=== PATIENT | female | born 1965 | race African-American/Black ===

== ENCOUNTER 2016-04-17 20:29 | Emergency (ER) | payer OTHER ==
[2016-04-17] MEDS ORDERED: ACETAMINOPHEN 325 MG TABLET PO ONE (20:37)
--- NOTE | 2016-04-17 20:38 | ER Document Report ---
ED Medical Screen (RME) - General Stated Complaint: COXIS PAIN Mode of Arrival: Ambulatory Information source: Patient Notes: Patient complains of heavy vaginal pressure after a lot of heavy lifting and moving at work. Patient denies any urinary symptoms. Patient denies vaginal bleeding or discharge hx: Hypertension I have greeted and performed a rapid initial assessment of this patient. A comprehensive ED assessment and evaluation of the patient, analysis of test results and completion of the medical decision making process will be conducted by additional ED providers. Physical Exam - Vital signs Vitals: Temp Pulse Resp BP Pulse Ox 97.9 F 65 16 178/98 H 97 04/17/16 20:34 04/17/16 20:34 04/17/16 20:34 04/17/16 20:34 04/17/16 20:34 - General General appearance: Appears well, Alert In distress: None Course - Vital Signs Vital signs: Temp Pulse Resp BP Pulse Ox 97.9 F 65 16 178/98 H 97 04/17/16 20:34 04/17/16 20:34 04/17/16 20:34 04/17/16 20:34 04/17/16 20:34
--- NOTE | 2016-04-17 21:35 | ER Document Report ---
ED General - General Chief Complaint: Pelvic Pain Stated Complaint: COXIS PAIN Mode of Arrival: Ambulatory Information source: Patient Notes: Patient presents to the emergency department with complaints of vaginal pressure. 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 She reports she is constantly lifting and pulling residence that live there. She reports she doesn 't remember feeling a pop or pain when she was lifting a patient but when she went to sit down she started having vaginal pressure. She denies other symptoms such as fever vomiting diarrhea. She denies pain with void. Denies urinary frequency She reports she has not been sexually active. Denies past medical history of injury to that area. TRAVEL OUTSIDE OF THE [place] IN LAST 30 DAYS: No - HPI Onset: Just prior to arrival Onset/Duration: Sudden Quality of pain: Pressure Severity: Severe Pain Level: 5 Associated symptoms: None Exacerbated by: Denies Relieved by: Denies Similar symptoms previously: No Recently seen / treated by doctor: No - Related Data Allergies/Adverse Reactions: acetaminophen [From Percocet] Allergy (Verified 04/17/16 21:59) diphenhydramine [From Benadryl] Allergy (Verified 04/17/16 21:59) oxycodone [From Percocet] Allergy (Verified 04/17/16 21:59) Home Medications: Current Home Medications Amlodipine Besylate [Norvasc 10 mg Tablet] 1 tab PO DAILY 04/17/16 [History] Lisinopril 1 tab PO DAILY 04/17/16 [History] Past Medical History - General Information source: Patient Last Menstrual Period: last month - Social History Smoking Status: Never Smoker Cigarette use (# per day): No Chew tobacco use (# tins/day): No Frequency of alcohol use: None Drug Abuse: None Occupation: [employer] Family History: None Patient has suicidal ideation: No Patient has homicidal ideation: No Renal/ Medical History: Denies: Hx Peritoneal Dialysis Traumatic Medical History: Reports: Hx Fractures Past Surgical History: Reports: Hx Section Review of Systems - Review of Systems Notes: Review HPI for review of systems., All other systems negative Physical Exam - Vital signs Vitals: Temp Pulse Resp BP Pulse Ox 97.9 F 65 16 178/98 H 97 04/17/16 20:34 04/17/16 20:34 04/17/16 20:34 04/17/16 20:34 04/17/16 20:34 - Notes Notes: PHYSICAL EXAMINATION: GENERAL: Well-appearing and in no acute distress nontoxic looking HEAD: Atraumatic, normocephalic. EYES: Pupils equal round extraocular movements intact, sclera anicteric, conjunctiva are normal. ENT: nares patent, Moist mucous membranes. NECK: Normal range of motion, supple without lymphadenopathy LUNGS: CTAB and equal. No wheezes rales or rhonchi. HEART: Regular rate and rhythm without murmurs ABDOMEN: Soft, no tenderness. No guarding, no rebound BACK: No c/o pain EXTREMITIES: Normal range of motion, no pitting edema. No cyanosis. NEUROLOGICAL: Cranial nerves grossly intact. Normal sensory/motor PSYCH: Normal mood, normal affect. SKIN: Warm, Dry, normal turgor, no rashes or lesions noted - Genitourinary External exam: Normal Speculum exam: Normal Vaginal bleeding: None Bimanuel exam: Normal Course - Re-evaluation Re-evalutation: 04/17/16 21:34 Patient instructed on pending pelvic. 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 Patient also instructed on signs and symptoms of allergic reaction to sulfa. - Vital Signs Vital signs: Temp Pulse Resp BP Pulse Ox 97.9 F 65 16 178/98 H 97 04/17/16 20:34 04/17/16 20:34 04/17/16 20:34 04/17/16 20:34 04/17/16 20:34 - Laboratory Laboratory results interpreted by me: 04/17/16 21:45 Ur Leukocyte Esterase MODERATE H Procedures - Pelvic Exam Pelvic exam Cultures obtained: No Wet prep obtained: No Herpes culture obtained: No POC sent to lab: No Foreign body removed: No Bimanual exam performed: Yes Witnessed by: jack brady lpn Discharge - Discharge Clinical Impression: vaginal pressure UTI (urinary tract infection) Qualifiers: Urinary tract infection type: site unspecified Hematuria presence: without hematuria Qualified Code(s): N39.0 - Urinary tract infection, site not specified Condition: Stable Disposition: HOME, SELF-CARE Instructions: Urinary Tract Infection ([facility]), Trimethoprim-Sulfa ([facility]) Additional Instructions: *You have been evaluated for vaginal pressure, urinary tract infection *Take medication as prescribed *Follow up with your [facility] or the health department for recheck *Avoid sexual intercourse until follow up *Plan urine recheck in one week *Return to ED for worsening condition, changes, needs Prescriptions: Sulfamethoxazole/Trimethoprim [Bactrim Ds Tablet] 1 each PO BID #10 tablet Forms: Return to Work
[2016-04-17 22:17] LABS: APPEARANCE,URINE CLEAR; BILIRUBIN,URINE NEGATIVE (NEGATIVE); GLUCOSE, URINE NEGATIVE (NEGATIVE); KETONES,URINE NEGATIVE (NEGATIVE); LEUKOCYTE ESTERASE,URINE MODERATE (NEGATIVE); NITRITE,URINE NEGATIVE (NEGATIVE); PROTEIN,URINE NEGATIVE (NEGATIVE); URINE SPECIFIC GRAVITY 1.017; UROBILINOGEN,URINE NEGATIVE mg/dL (<2.0)
[2016-04-17 23:44] VITALS: BP 135/79
== END 2016-04-17 22:55 | disposition home or self-care (01) ==
LOC: ER 20:29
DX: N39.0 Urinary tract infection, site not specified (principal); R10.2 Pelvic and perineal pain; Z88.6 Allergy status to analgesic agent
CPT/HCPCS: 81001; 81025; 87086; 87088; 99284

== ENCOUNTER 2017-01-22 23:40 | Emergency (ER) | payer OTHER ==
[2017-01-22 23:56] VITALS: BP 167/92
[2017-01-23] MEDS ORDERED: IBUPROFEN 800 MG TABLET PO ONE (00:08)
--- NOTE | 2017-01-23 00:08 | ER Document Report ---
HPI - HPI Patient complains to provider of: Right shoulder pain Pain Level: 3 Context: Patient is a 51-year-old female presents emergency department complaining of right shoulder pain. Patient states that she has previous history of pain in the shoulder and was diagnosed with a possible torn rotator cuff but denies any previous imaging of the shoulder. 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 She states she has this pain with arm abduction but otherwise has been trying to move around. She has not taken anything [id number] for her pain she denies any associated chest pain, shortness of breath with us - DERM Skin Color: Normal Past Medical History - Social History Smoking Status: Never Smoker Family History: None Patient has suicidal ideation: No Patient has homicidal ideation: No - Past Medical History Cardiac Medical History: Reports: Hx Hypertension Renal/ Medical History: Denies: Hx Peritoneal Dialysis Traumatic Medical History: Reports: Hx Fractures Past Surgical History: Reports: Hx Section - Immunizations Hx Diphtheria, Pertussis, Tetanus Vaccination: Yes Vertical Provider Document - CONSTITUTIONAL Agree With Documented VS: Yes General Appearance: WD/WN, No Apparent Distress - INFECTION CONTROL TRAVEL OUTSIDE OF THE [place] IN LAST 30 DAYS: No - RESPIRATORY Respiratory: Breath Sounds Normal, No Respiratory Distress, Chest Non-Tender O2 Sat by Pulse Oximetry: 98 - CARDIOVASCULAR Cardiovascular: Regular Rate, Regular Rhythm, No Murmur Pulses: Normal: Radial Notes: Chest nontender to palpation - MUSCULOSKELETAL/EXTREMETIES Musculoskeletal/Extremeties: MAEW, FROM, Tender - AC joint right shoulder, No Edema. negative: Edema, Eccymosis Notes: No deformity or dislocation - NEURO Level of Consciousness: Awake, Alert, Appropriate Motor/Sensory: No Motor Deficit, No Sensory Deficit - DERM Integumentary: Warm, Dry, No Rash Course - Re-evaluation Re-evalutation: 01/23/17 12:00 patient is a 51-year-old female who is hemodynamically stable, no acute distress and afebrile. no evidence of a septic joint, gout flare, dislocation , or fracture on exam and imaging. Imaging does show evidence of AC joint degeneration which is consistent with physical exam findings vitals wnl. At this time, I do not see an indication for labs or further imaging. Will discharge with conservative measures, return precautions, and follow-up recommendations. - Vital Signs Vital signs: Temp Pulse Resp BP Pulse Ox 98.1 F 68 16 167/92 H 98 01/22/17 23:54 01/22/17 23:54 01/22/17 23:54 01/22/17 23:54 01/22/17 23:54 - Diagnostic Test Radiology reviewed: Image reviewed, Reports reviewed Discharge - Discharge Clinical Impression: Shoulder injury Qualifiers: Encounter type: initial encounter Laterality: right Qualified Code(s): S49.91XA - Unspecified injury of right shoulder and upper arm, initial encounter Condition: Good Disposition: HOME, SELF-CARE Instructions: Arthritis ([facility]), Use of Ylve-Mso-Amfgewa Ibuprofen ([facility]) Additional Instructions: Please follow-up with your primary care provider in about 1 week if your symptoms do not improve. Forms: Special Work Note
--- NOTE | 2017-01-23 00:42 | RADIOLOGY REPORT (SQ) ---
EXAM DESCRIPTION: SHOULDER RIGHT 2 OR MORE VIEWS COMPLETED DATE/TIME: 01/23/2017 12:28 am REASON FOR STUDY: right shoulder pain , lifting injury. Pain in the joint. COMPARISON: None. NUMBER OF VIEWS: Three views. TECHNIQUE: Internal rotation, external rotation, and Y view images acquired of the right shoulder. LIMITATIONS: None. FINDINGS: MINERALIZATION: Normal. BONES: No acute fracture or dislocation. JOINTS: No dislocation. Degenerative changes at the acromioclavicular joint. VISUALIZED LUNGS AND RIBS: No pneumothorax. No displaced rib fracture. SOFT TISSUES: No radiopaque foreign body. IMPRESSION: No radiographic evidence of acute injury. Degenerative changes at the AC joint. TECHNICAL DOCUMENTATION: JOB ID: [id number] [employer]- All Rights Reserved
== END 2017-01-23 01:28 | disposition home or self-care (01) ==
LOC: ER 23:40
DX: S49.91XA Unspecified injury of right shoulder and upper arm, initial encounter (principal); M25.511 Pain in right shoulder; X58.XXXA Exposure to other specified factors, initial encounter
CPT/HCPCS: 99283